=== PATIENT | female | born 1990 | race African-American/Black ===

== ENCOUNTER 2017-07-25 12:57 | Emergency (ER) | payer SELFPAY ==
[~2017-07-25] VITALS: Ht 170.2 cm; Wt 81.5 kg
[2017-07-25 13:19] VITALS: BP 127/70; PULSE 86; RESP 16; TEMP 98.3; O2SAT 100
[2017-07-25] MEDS ORDERED: ATOR10TA15 PO (14:49)
[2017-07-25] MEDS ORDERED: LISI2.5T3 PO (14:49)
[2017-07-25 15:50] LABS: BILIRUBIN, URINE NEG (NEG); BLOOD, URINE NEG (NEG); GLUCOSE,URINE NEG (NEG); KETONE, URINE NEG (NEG); MUCUS URINE FEW /lpf (OCC); NITRITE,URINE NEG (NEG); SQUAMOUS EPITHELIAL CELL URINE 4 /hpf (0-5); URINE COLOR LIGHT-YELLOW (YELLW/STRAW); URINE LEUKOCYTE ESTERASE NEG (NEG)
--- NOTE | 2017-07-25 16:40 | PD ---
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 Denies abdominal pain and cramping at this time. Denies vaginal bleeding. Says she does feel occasional pelvic cramping, but not now. Reports nausea without vomiting. Denies fever. Reports dysuria and urinary frequency. Last menstrual period was mid June. Does not know if she may be . Denies contraception use. Reports possible exposure to chlamydia. Has not taken any medications or try any treatments to alleviate her symptoms. Symptoms are mild to moderate in severity. No primary care provider. No gynecology. Allergies to doxycycline. History of hypertension and hypercholesterolemia. Has no other medical complaints. No other modifying factors or associated signs and symptoms. PFSH Past Medical History ?: Unknown LMP: JUNE 2017 Social History Alcohol Use: No Tobacco Use: No Allergies-Medications (Allergen,Severity, Reaction): Coded Allergies: doxycycline (Verified Allergy, Severe, 07/25/17) Reported Meds & Prescriptions Reported Meds & Active Scripts Active Reported Atorvastatin (Atorvastatin Calcium) 10 Mg Tab 10 Mg PO HS Lisinopril 2.5 Mg Tab 2.5 Mg PO DAILY Review of Systems Except as stated in HPI: all other systems reviewed are Neg Physical Exam Narrative GENERAL: Well-nourished, well-developed black female patient, in no acute distress; afebrile, nontoxic-appearing SKIN: Warm and dry. HEAD: Atraumatic. Normocephalic. EYES: Pupils equal and round. No scleral icterus. No injection or drainage. ENT: Mucous membranes pink and moist. NECK: Trachea midline. No lymphadenopathy. CARDIOVASCULAR: Regular rate and rhythm. No murmur appreciated. RESPIRATORY: No accessory muscle use. Clear to auscultation. Breath sounds equal bilaterally. GASTROINTESTINAL: Abdomen soft, non-tender, nondistended. Bilateral pelvic region nontender to palpation. Hepatic and splenic margins not palpable. No guarding, rigidity, rebound tenderness. PELVIC: Exam done in the presence of a nurse. Speculum exam reveals edematous and erythematous cervix light yellow, mucopurulent, foul-smelling discharge. Bimanual exam reveals no palpable masses or adnexa tenderness, no uterine tenderness. No cervical motion tenderness. BACK: No CVA tenderness. MUSCULOSKELETAL: No obvious deformities. No clubbing. No cyanosis. No edema. NEUROLOGICAL: Awake and alert. No obvious cranial nerve deficits. Motor grossly within normal limits. Normal speech. PSYCHIATRIC: Appropriate mood and affect; insight and judgment normal. Data Data Last Documented VS Vital Signs Date Time Temp Pulse Resp B/P (MAP) Pulse Ox O2 Delivery O2 Flow Rate FiO2 07/25/17 13:19 98.3 86 16 127/70 (89) 100 Orders Orders Gc And Chlamydia Pcr (07/25/17 14:57) Wet Prep Profile (07/25/17 14:57) Urinalysis - C+S If Indicated (07/25/17 14:57) Ed Urine Pregnancytest Poc (07/25/17 14:57) Ceftriaxone Inj (Rocephin Inj) (07/25/17 16:45) Lidocaine 1% Inj (50 Ml) (Xylocaine 1% I (07/25/17 16:45) Azithromycin (Zithromax) (07/25/17 16:45) Ondansetron Odt (Zofran Odt) (07/25/17 16:45) Lidocaine 1% Inj (Xylocaine 1% Inj) (07/25/17 16:49) Labs Laboratory Tests Test 07/25/17 15:30 07/25/17 16:15 Urine Color LIGHT-YELLOW Urine Turbidity CLEAR Urine pH 6.0 Urine Specific [place] 1.021 Urine Protein NEG mg/dL Urine Glucose (UA) NEG mg/dL Urine Ketones NEG mg/dL Urine Occult Blood NEG Urine Nitrite NEG Urine Bilirubin NEG Urine Urobilinogen LESS THAN 2.0 MG/DL Urine Leukocyte Esterase NEG Urine RBC LESS THAN 1 /hpf Urine WBC LESS THAN 1 /hpf Urine Squamous Epithelial Cells 4 /hpf Urine Mucus FEW /lpf Microscopic Urinalysis Comment CULT NOT INDICATED Clue Cells (Wet Prep) PRESENT Vaginal Trichomonas (Wet Prep) NONE SEEN Vaginal Yeast (Wet Prep) NONE SEEN MDM Medical Decision Making Medical Screen Exam Complete: Yes Emergency Medical Condition: Yes Medical Record Reviewed: Yes Differential Diagnosis Chlamydia, gonorrhea, trichomonas, PID, UTI Narrative Course 26-year-old female with cervicitis. Patient empirically treated with azithromycin and Rocephin in the ER. No cervical motion tenderness. 1638: Urinalysis without signs of infection. 1654: Positive for clue cells. Negative trichomonas and vaginal yeast. Chlamydia and gonorrhea pending. Flagyl prescribed for home. Instructed patient to follow-up with litigation associate. Instructed patient to follow up with primary care provider. Patient verbalizes understanding and agreement with treatment plan. Patient is medically cleared and stable for discharge. Discussed reasons to return to the emergency department. Patient agrees with treatment plan. The patients vital signs are stable and the patient is stable for outpatient follow-up and treatment. Patient discharged home, stable and in no acute distress. Diagnosis Primary Impression: Cervicitis Additional Impression: Bacterial vaginosis Ref[facility]: [facility] Patient Instructions: Bacterial Vaginosis (ED), Cervicitis (ED), Chlamydia (ED) , General Instructions, Gonorrhea (ED) Additional Instructions: Avoid sexual activity for 14 days No sexual activity with your partner/s until they have been treated and waited 14 days Inform all sexual partners within the past 3-6 months that they need to be evaluated and treated Use condoms every time you have sex Follow-up with primary care provider Return to the emergency department immediately with worsening of symptoms Med/Other Pt SpecificInfo: Prescription(s) given Scripts Metronidazole (Flagyl) 500 Mg Tab 500 MG PO BID for Infection for 7 Days, #14 TAB 0 Refills Prov: Aretha Arnold 07/25/17 Disposition: 01 DISCHARGE HOME Condition: Stable Aretha Arnold Jul 25, 2017 16:40
[2017-07-25] MEDS ORDERED: AZITHROMYCIN 250 MG TAB PO ONE (16:45)
[2017-07-25] MEDS ORDERED: LIDOCAINE HCL 1% 50 ML VIAL IM ONE (16:45)
[2017-07-25] MEDS ORDERED: cefTRIAXone 250 MG VIAL IM ONE (16:45)
[2017-07-25] MEDS ORDERED: ONDANSETRON ODT 4 MG TAB PO ONE (16:45)
[2017-07-25] MEDS ORDERED: LIDOCAINE HCL 1% 20 ML VIAL ONE (16:49)
--- NOTE | 2017-07-25 16:54 | PD ---
Data Data Last Documented VS Vital Signs Date Time Temp Pulse Resp B/P (MAP) Pulse Ox O2 Delivery O2 Flow Rate FiO2 07/25/17 13:19 98.3 86 16 127/70 (89) 100 Orders Orders Gc And Chlamydia Pcr (07/25/17 14:57) Wet Prep Profile (07/25/17 14:57) Urinalysis - C+S If Indicated (07/25/17 14:57) Ed Urine Pregnancytest Poc (07/25/17 14:57) Ceftriaxone Inj (Rocephin Inj) (07/25/17 16:45) Lidocaine 1% Inj (50 Ml) (Xylocaine 1% I (07/25/17 16:45) Azithromycin (Zithromax) (07/25/17 16:45) Ondansetron Odt (Zofran Odt) (07/25/17 16:45) Lidocaine 1% Inj (Xylocaine 1% Inj) (07/25/17 16:49) Labs Laboratory Tests Test 07/25/17 15:30 07/25/17 16:15 Urine Color LIGHT-YELLOW Urine Turbidity CLEAR Urine pH 6.0 Urine Specific [place] 1.021 Urine Protein NEG mg/dL Urine Glucose (UA) NEG mg/dL Urine Ketones NEG mg/dL Urine Occult Blood NEG Urine Nitrite NEG Urine Bilirubin NEG Urine Urobilinogen LESS THAN 2.0 MG/DL Urine Leukocyte Esterase NEG Urine RBC LESS THAN 1 /hpf Urine WBC LESS THAN 1 /hpf Urine Squamous Epithelial Cells 4 /hpf Urine Mucus FEW /lpf Microscopic Urinalysis Comment CULT NOT INDICATED Clue Cells (Wet Prep) PRESENT Vaginal Trichomonas (Wet Prep) NONE SEEN Vaginal Yeast (Wet Prep) NONE SEEN MDM Supervised Visit with KEYUR: Yes Narrative Course I, Dr. Schulte, have reviewed the advance practice practitioner's documentation and am in agreement, met with the patient face to face, made the diagnosis, and the medical decision making was done by me. *My assessment and Findings: This patient has some pelvic and vaginal symptoms. Her is negative. She does have clue cells on wet prep suggesting bacterial vaginosis. She will get a prescription for metronidazole. So far the rest of her workup is negative. Diagnosis Primary Impression: Cervicitis Additional Impression: Bacterial vaginosis Referrals: [facility] Primary Care Physician [facility] Patient Instructions: General Instructions, Cervicitis (ED), Chlamydia (ED), Gonorrhea (ED) Additional Instruction: Avoid sexual activity for 14 days No sexual activity with your partner/s until they have been treated and waited 14 days Inform all sexual partners within the past 3-6 months that they need to be evaluated and treated Use condoms every time you have sex Follow-up with primary care provider Return to the emergency department immediately with worsening of symptoms Disposition: 01 DISCHARGE HOME Condition: Stable Nino Schulte MD Jul 25, 2017 16:54
[2017-07-25] MEDS ORDERED: METR-1 PO (16:56)
== END 2017-07-25 17:22 | disposition home or self-care (01) ==
LOC: NEPD 12:57
DX: N72 Inflammatory disease of cervix uteri (principal); N76.0 Acute vaginitis; B96.89 Other specified bacterial agents as the cause of diseases classified elsewhere; E78.00 Pure hypercholesterolemia, unspecified; I10 Essential (primary) hypertension
CPT/HCPCS: 81001; 84703; 87210; 87491; 87591; 99283; J0696